=== PATIENT | male | born 1970 | race African-American/Black ===

== ENCOUNTER 2020-12-17 14:02 | Emergency (ER) | payer OTHER, SELFPAY ==
[2020-12-17] MEDS ORDERED: Fentanyl 100 MCG/2 ML VIAL ONE (14:26)
[2020-12-17 14:38] LABS: #Basophils 0.1 thou/uL (0.0-0.2); #Eosinphils 0.2 thou/uL (0.0-0.7); #Lymphocytes 1.8 thou/uL (1.20-3.40); #Monocytes 0.5 thou/uL (0.11-0.59); #Neutrophils 2.6 thou/uL (1.40-6.50); %Basophils 1.1 % (0.0-1.0); %Eosinophils 3.2 % (0.0-10.0); %Lymphocytes 35.1 % (21.0-51.0); %Monocytes 10.4 % (0.0-10.0); %Neutrophils 50.2 % (42.0-75.0); Hemoglobin 13.5 g/dL (14.0-18.0); Mean Corpuscular HGB CONC 33.6 g/dL (32.0-36.0); Mean Corpuscular Hemoglobin 29.3 pg (27.0-31.0); Mean Platelet Volume 6.8 fL (7.4-10.4); Platelet Count 339 thou/uL (130-400); RBC Distribution Width 12.2 % (11.5-14.5); White Blood Cell (WBC) Count 5.2 thou/uL (4.8-10.8)
[2020-12-17 14:43] LABS: PTT 33.3 sec (22.9-36.1); Prothrombin Time 12.9 sec (12.0-14.7)
--- NOTE | 2020-12-17 14:53 | CT ---
CT Cervical Spine WO Con Indication: Pain/Injury COMPARISON: None. FINDINGS: Spinal alignment: No acute malalignment. Craniocervical junction: Within normal limits. Fracture: None. Vertebral body heights: Maintained. Prevertebral soft tissues:Normal appearing. Cervical spine degenerative change: There is a partial ankylosis of the C2-C3 vertebra at the level t he facets on the right. There is [id number] multilevel cervical spondylosis. 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 Lung apices: Clear. IMPRESSION: No acute osseous abnormality. [id number] cervical spondylosis. Partial ankylosis of C2-C3. 

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
[2020-12-17 15:10] LABS: ALT (SGPT) 22 U/L (8-55); AST (SGOT) 29 U/L (5-34); Albumin 3.8 g/dL (3.5-5.0); Alkaline Phosphatase 96 U/L (40-110); Anion Gap 11 mmol/L (10-20); BUN (Urea Nitrogen) 14 mg/dL (8.4-25.7); Bilirubin, Total 0.3 mg/dL (0.2-1.2); Calc. Creatinine Clearance 0 mL/min (70-130); Calcium 8.8 mg/dL (7.8-10.44); Carbon Dioxide 25 mmol/L (22-29); Chloride 109 mmol/L (98-107); Globulin 3.4 g/dL (2.4-3.5); Glucose 94 mg/dL (70-105); Protein, Total 7.2 g/dL (6.0-8.3); Sodium 141 mmol/L (136-145)
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
== END 2020-12-17 16:27 | disposition home or self-care (01) ==
LOC: ERS 14:02 → EDBD 14:02 → ERS 16:27
DX: M54.2 Cervicalgia (principal); M25.512 Pain in left shoulder; V54.5XXA Driver of pick-up truck or van injured in collision with heavy transport vehicle or bus in traffic accident, initial encounter
CPT/HCPCS: 70450; 71045; 72125; 80053; 85025; 85610; 85730; 96374; J3010